=== PATIENT | female | born 2005 | race Two or more races ===

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

== ENCOUNTER 2024-03-16 13:06 | Emergency (ER) | payer OTHER ==
[~2024-03-16] VITALS: Ht 162.6 cm; Wt 63.5 kg
[2024-03-16 13:56] VITALS: TEMP 98
[2024-03-16] MEDS: IV NS 0.9% 1,000 ML BAG IV ONE (14:56)
[2024-03-16] MEDS ORDERED: MORPHINE SULFATE INJ 4 MG/ML DISP.SYRIN ONE (14:58)
[2024-03-16] MEDS ORDERED: ONDANSETRON HCL/PF 4 MG/2 ML VIAL ONE (14:58)
[2024-03-16] MEDS: ONDANSETRON HCL/PF 4 MG/2 ML VIAL IVP ONE (15:00)
[2024-03-16] MEDS: MORPHINE SULFATE INJ 2 MG/ML DISP.SYRIN IV ONE (15:06)
[2024-03-16 15:12] LABS: BASOPHILS % (AUTO) 0.4 % (0.0-2.0); EOSINOPHILS % (AUTO) 0.6 % (0.0-6.0); HEMATOCRIT 38 % (33-45); HEMOGLOBIN 12.2 g/dL (11.5-14.8); LYMPHOCYTES # (AUTO) 1.8 K/uL (0.8-4.8); MEAN CORPUSCULAR HEMOGLOBIN 25 PG (26.0-33.0); MEAN CORPUSCULAR HGB CONC 33 g/dl (31.0-36.0); MEAN CORPUSCULAR VOLUME 78 fL (82-100); MONOCYTES # (AUTO) 0.5 K/uL (0.1-1.30); MONOCYTES % (AUTO) 7.6 % (2.0-12.0); NEUTROPHILS % (AUTO) 63.4 % (43.0-81.0); PLATELET COUNT (AUTO) 284 K/uL (150-450); RED BLOOD CELL COUNT(AUTO) 4.81 MIL/uL (4.0-5.2); RED CELL DISTRIBUTION WIDTH 14.2 % (11.5-15.0); WHITE BLOOD COUNT (AUTO) 6.3 K/uL (4.3-11.0)
[2024-03-16 15:20] LABS: CALCIUM, SERUM 9.5 mg/dL (8.5-10.1); CREATININE 0.8 mg/dL (0.6-1.3); POTASSIUM 4.2 mmol/L (3.5-5.1)
[2024-03-16 15:25] LABS: APPEARANCE,URINE Slightly Cloudy (CLEAR); BILIRUBIN,URINE SMALL (NEGATIVE); BLOOD, URINE Negative Ery/uL (NEGATIVE); COLOR,URINE YELLOW (YELLOW); KETONES,URINE Trace mg/dL (NEGATIVE); LEUKOCYTE ESTERASE ,URINE Negative (NEGATIVE); NITRITE, URINE Negative (NEGATIVE); PH,URINE 5.5 (5.0-8.0); PROTEIN,URINE Negative (NEGATIVE); UGLUCOSE Negative (NEGATIVE); UROBILINOGEN,URINE 0.2 EU/dL (0.2)
[2024-03-16 15:26] LABS: ALBUMIN 4.3 g/dL (3.4-5.0); BILIRUBIN,DIRECT 0.3 mg/dL (0.0-0.2); BILIRUBIN,TOTAL 1.8 mg/dL (0.2-1.0); TOTAL PROTEIN, SERUM 8.8 g/dL (6.4-8.2)
[2024-03-16 15:34] LABS: PREGNANCY TEST URINE QUAL NEGATIVE (NEGATIVE)
[2024-03-16 16:59] LABS: ADD URINE CULTURE YES; BACTERIA,URINE Moderate /HPF (None Seen); MUCUS,URINE Many /LPF (None Seen); RBC,URINE 0-2 /HPF (0-2); SQUAMOUS EPITHELIAL CELL,UR Moderate /HPF (None Seen); WBC,URINE 0-2 /HPF (0-3)
[2024-03-16] MEDS ORDERED: ONDA4TAB5 PO (17:55)
[2024-03-16] MEDS ORDERED: HYDR-4275 PO (17:55)
[2024-03-16 18:06] VITALS: BP 99/58; O2SAT 98
== END 2024-03-16 18:07 | disposition home or self-care (01) ==
LOC: ER 13:10
DX: R10.2 Pelvic and perineal pain (principal)
CPT/HCPCS: 99285; 74176; 96374; 76856; 96361; 96375; 85025; 80048; 87086; 83690; 80076; 84703; 81001; 36415; J2270; J2405; J7030